=== PATIENT | male | born 1940 | race American Indian/Alaskan Native ===

== ENCOUNTER 2017-10-25 13:27 | Inpatient (IN) | payer OTHER ==
[2017-10-25] MEDS ORDERED: PROVENTIL IH ONE ×2 (13:32→13:38)
[2017-10-25] MEDS ORDERED: ATROVENT IH ONE ×2 (13:32→13:38)
[2017-10-25 14:09] LABS: Hematocrit 37.9 % (35.5-45.6); Hemoglobin 12.2 gm/dl (11.8-15.2); Mean Corpuscular HGB Conc 32 % (32-34); Mean Corpuscular Hemoglobin 31 pg (28-32); Mean Corpuscular Volume 96 fl (84-94); Red Blood Count 3.93 M/mm3 (3.65-5.03); Red Cell Distribution Width 13.6 % (13.2-15.2)
[2017-10-25 14:11] LABS: Platelet Count 96 K/mm3 (140-440)
[2017-10-25 14:19] LABS: Calcium 8.5 mg/dL (8.4-10.2)
[2017-10-25 15:02] LABS: Band Neutrophils # (Manual) 0.1 K/mm3; Basophils % (Manual) 0 % (0.0-1.8); Eosinophils % (Manual) 0 % (0.0-4.3); Platelet Clumps Rare; Platelet Estimate Consistent w Auto; RBC Morphology Normal; Total Cells Counted 100
[2017-10-25] MEDS ORDERED: LEVAQUIN 750MG/150ML 750 MG/150 ML BAG IV ONE (16:15)
[2017-10-25] MEDS ORDERED: LASIX IV ONE (16:15)
--- NOTE | 2017-10-25 16:41 | History and Physical Report ---
History of Present Illness Date of examination: 10/25/17 Date of admission: 10/25/17 Chief complaint: Increasing SOB since AM History of present illness: History of Present Illness: 13-[id number]-cud- [place] male comes in for increasing shortness of breath since AM. Cough productive of mucoid sputum.Patient has hx of COPD. No exacerbating or relieving factors.Not intubated in the past.No fever/ chills.No recent travel. Past Medical History COPD Social History Smoking Status: Unknown if ever smoked Surgical Hx None Family Hx Htn Medications Home Medications: Home Medications Medication Instructions Recorded Confirmed Last Taken Type ALBUTEROL NEB's [Proventil] 2.5 mg IH TID PRN 10/25/17 10/25/17 Unknown History Levofloxacin [Levaquin] 250 mg PO QDAY 10/25/17 10/25/17 Unknown History Medications and Allergies Allergies Allergy/AdvReac Type Severity Reaction Status Date / Time No Known Allergies Allergy Unverified 10/25/17 16:34 Home Medications Medication Instructions Recorded Confirmed Last Taken Type ALBUTEROL NEB's [Proventil] 2.5 mg IH TID PRN 10/25/17 10/25/17 Unknown History Levofloxacin [Levaquin] 250 mg PO QDAY 10/25/17 10/25/17 Unknown History Active Meds: Active Medications Levofloxacin/Dextrose (Levaquin 750mg/150ml) 750 mg in 150 mls @ 100 mls/hr IV ONCE ONE Stop: 10/25/17 17:44 Review of Systems All systems: negative Cardiovascular: shortness of breath, dyspnea on exertion, no chest pain, no orthopnea, no palpitations, no rapid/irregular heart beat, no edema, no syncope , no lightheadedness Respiratory: cough, cough with sputum, dyspnea on exertion, congestion, wheezing Gastrointestinal: no abdominal pain, no nausea, no vomiting, no diarrhea Genitourinary Male: no dysuria, no hematuria, no flank pain, no discharge, no urinary frequency, no urinary hesitancy Musculoskeletal: no neck stiffness, no neck pain, no shooting arm pain, no arm numbness/tingling Integumentary: no rash, no pruritis, no redness, no sores Neurological: no head injury, no transient paralysis, no paralysis, no seizures , no syncope Psychiatric: no anxiety, no memory loss, no change in sleep habits, no sleep disturbances, no insomnia, no change in libido Endocrine: no cold intolerance, no heat intolerance, no polyphagia, no excessive thirst Hematologic/Lymphatic: no easy bruising, no easy bleeding Allergic/Immunologic: no urticaria, no allergic rhinitis, no wheezing Exam - Constitutional Vitals: Temp Pulse Resp BP Pulse Ox 82 16 130/93 97 10/25/17 16:18 10/25/17 16:18 10/25/17 16:18 10/25/17 16:18 General appearance: Present: no acute distress, well-nourished - EENT Eyes: Present: PERRL ENT: hearing intact, clear oral mucosa - Neck Neck: Present: supple, normal ROM - Respiratory Respiratory effort: normal Respiratory: bilateral: CTA, rhonchi, wheezing - Cardiovascular Heart rate: 80 Rhythm: regular Heart Sounds: Present: S1 & S2. Absent: rub, click - Extremities Extremities: no ischemia, pulses intact, pulses symmetrical, No edema Peripheral Pulses: within normal limits - Abdominal General gastrointestinal: Present: soft, non-tender, non-distended, normal bowel sounds Male genitourinary: Present: normal - Rectal Rectal Exam: deferred - Integumentary Integumentary: Present: clear, warm, dry - Musculoskeletal Musculoskeletal: gait normal, strength equal bilaterally - Psychiatric Psychiatric: appropriate mood/affect, intact judgment & insight - Neurologic Neurologic: CNII-XII intact, moves all extremities - Allied Health Allied health notes reviewed: nursing, case management Results - Labs CBC & Chem 7: 10/25/17 13:50 10/25/17 13:50 Labs: Laboratory Last Values WBC 5.7 K/mm3 (4.5-11.0) 10/25/17 13:50 RBC 3.93 M/mm3 (3.65-5.03) 10/25/17 13:50 Hgb 12.2 gm/dl (11.8-15.2) 10/25/17 13:50 Hct 37.9 % (35.5-45.6) 10/25/17 13:50 MCV 96 fl (84-94) H 10/25/17 13:50 MCH 31 pg (28-32) 10/25/17 13:50 MCHC 32 % (32-34) 10/25/17 13:50 RDW 13.6 % (13.2-15.2) 10/25/17 13:50 Plt Count 96 K/mm3 (140-440) L 10/25/17 13:50 Major % (Auto) Painter And Decorator 10/25/17 13:50 Add Manual Diff Complete 10/25/17 13:50 Total Counted 100 10/25/17 13:50 Seg Neuts % (Manual) 75.0 % (40.0-70.0) H 10/25/17 13:50 Band Neutrophils % 1.0 % 10/25/17 13:50 Lymphocytes % (Manual) 10.0 % (13.4-35.0) L 10/25/17 13:50 Reactive Lymphs % (Man) 0 % 10/25/17 13:50 Monocytes % (Manual) 14.0 % (0.0-7.3) H 10/25/17 13:50 Eosinophils % (Manual) 0 % (0.0-4.3) 10/25/17 13:50 Basophils % (Manual) 0 % (0.0-1.8) 10/25/17 13:50 Metamyelocytes % 0 % 10/25/17 13:50 Myelocytes % 0 % 10/25/17 13:50 Promyelocytes % 0 % 10/25/17 13:50 Blast Cells % 0 % 10/25/17 13:50 Nucleated RBC % Not Reportable 10/25/17 13:50 Seg Neutrophils # Man 4.3 K/mm3 (1.8-7.7) 10/25/17 13:50 Band Neutrophils # 0.1 K/mm3 10/25/17 13:50 Lymphocytes # (Manual) 0.6 K/mm3 (1.2-5.4) L 10/25/17 13:50 Abs React Lymphs (Man) 0.0 K/mm3 10/25/17 13:50 Monocytes # (Manual) 0.8 K/mm3 (0.0-0.8) 10/25/17 13:50 Eosinophils # (Manual) 0.0 K/mm3 (0.0-0.4) 10/25/17 13:50 Basophils # (Manual) 0.0 K/mm3 (0.0-0.1) 10/25/17 13:50 Metamyelocytes # 0.0 K/mm3 10/25/17 13:50 Myelocytes # 0.0 K/mm3 10/25/17 13:50 Promyelocytes # 0.0 K/mm3 10/25/17 13:50 Blast Cells # 0.0 K/mm3 10/25/17 13:50 WBC Morphology Not Reportable 10/25/17 13:50 Hypersegmented Neuts Not Reportable 10/25/17 13:50 Hyposegmented Neuts Not Reportable 10/25/17 13:50 Hypogranular Neuts Not Reportable 10/25/17 13:50 Smudge Cells Not Reportable 10/25/17 13:50 Toxic Granulation Not Reportable 10/25/17 13:50 Toxic Vacuolation Not Reportable 10/25/17 13:50 Dohle Bodies Not Reportable 10/25/17 13:50 Pelger-Huet Anomaly Not Reportable 10/25/17 13:50 Santy Rods Not Reportable 10/25/17 13:50 Platelet Estimate Consistent w auto 10/25/17 13:50 Clumped Platelets Rare 10/25/17 13:50 Plt Clumps, EDTA Not Reportable 10/25/17 13:50 Large Platelets Not Reportable 10/25/17 13:50 Giant Platelets Not Reportable 10/25/17 13:50 Platelet Satelliting Not Reportable 10/25/17 13:50 Plt Morphology Comment Not Reportable 10/25/17 13:50 RBC Morphology Normal 10/25/17 13:50 Dimorphic RBCs Not Reportable 10/25/17 13:50 Polychromasia Not Reportable 10/25/17 13:50 Hypochromasia Not Reportable 10/25/17 13:50 Poikilocytosis Not Reportable 10/25/17 13:50 Anisocytosis Not Reportable 10/25/17 13:50 Microcytosis Not Reportable 10/25/17 13:50 Macrocytosis Not Reportable 10/25/17 13:50 Spherocytes Not Reportable 10/25/17 13:50 Pappenheimer Bodies Not Reportable 10/25/17 13:50 Sickle Cells Not Reportable 10/25/17 13:50 Target Cells Not Reportable 10/25/17 13:50 Tear Drop Cells Not Reportable 10/25/17 13:50 Ovalocytes Not Reportable 10/25/17 13:50 Helmet Cells Not Reportable 10/25/17 13:50 Bai-Reeves Bodies Not Reportable 10/25/17 13:50 [place] Rings Not Reportable 10/25/17 13:50 Diana Cells Not Reportable 10/25/17 13:50 Bite Cells Not Reportable 10/25/17 13:50 Crenated Cell Not Reportable 10/25/17 13:50 Elliptocytes Not Reportable 10/25/17 13:50 Acanthocytes (Spur) Not Reportable 10/25/17 13:50 Rouleaux Not Reportable 10/25/17 13:50 Hemoglobin C Crystals Not Reportable 10/25/17 13:50 Schistocytes Not Reportable 10/25/17 13:50 Malaria parasites Not Reportable 10/25/17 13:50 Ángel Bodies Not Reportable 10/25/17 13:50 Hem Pathologist Commnt No 10/25/17 13:50 Sodium 144 mmol/L (137-145) 10/25/17 13:50 Potassium 4.8 mmol/L (3.6-5.0) 10/25/17 13:50 Chloride 102.8 mmol/L (98-107) 10/25/17 13:50 Carbon Dioxide 31 mmol/L (22-30) H 10/25/17 13:50 Anion Gap 15 mmol/L 10/25/17 13:50 BUN 31 mg/dL (9-20) H 10/25/17 13:50 Creatinine 1.7 mg/dL (0.8-1.5) H 10/25/17 13:50 Estimated GFR 39 ml/min 10/25/17 13:50 BUN/Creatinine Ratio 18 % 10/25/17 13:50 Glucose 121 mg/dL (75-100) H 10/25/17 13:50 Calcium 8.5 mg/dL (8.4-10.2) 10/25/17 13:50 Troponin T 0.081 ng/mL (0.00-0.029) H 10/25/17 13:50 NT-Pro-B Natriuret Pep 09223 pg/mL (0-900) H 10/25/17 13:50 - Imaging and Cardiology EKG: report reviewed Chest x-ray: report reviewed (Consolidate rt lung opacity -PNA versus scar etc ) Assessment and Plan Advance Directives: Yes (FC) VTE prophylaxis?: Chemical Plan of care discussed with patient/family: Yes - Patient Problems (1) Acute respiratory failure with hypoxia Current Visit: Yes Status: Acute Plan to address problem: Sec to PNA and COPD Treat Pneumonia and Copd Pt on Bipap If necessary intubation (2) Right lower lobe pneumonia Current Visit: Yes Status: Acute Plan to address problem: IV levaquin for now (3) COPD with acute exacerbation Current Visit: Yes Status: Acute Plan to address problem: Duonebs q6 rtc and q3 prn. (4) NEEL (acute kidney injury) Current Visit: Yes Status: Acute Plan to address problem: IV fluids for now (5) DVT prophylaxis Current Visit: Yes Status: Acute Plan to address problem: On Lovenox
[2017-10-25] MEDS ORDERED: TYLENOL PO PRN (16:44)
[2017-10-25] MEDS ORDERED: MILK OF MAGNESIA PO PRN (16:44)
[2017-10-25] MEDS ORDERED: MORPHINE IV PRN (16:44)
[2017-10-25] MEDS ORDERED: ZOFRAN IV PRN (16:44)
[2017-10-25] MEDS ORDERED: PERCOCET 5/325 PO PRN (16:44)
[2017-10-25] MEDS ORDERED: DULCOLAX PR PRN (16:44)
--- NOTE | 2017-10-25 16:51 | Emergency Department Report ---
ED Shortness of Breath HPI - General Chief Complaint: Dyspnea/Respdistress Stated Complaint: BASIA/AMS Time Seen by Provider: 10/25/17 13:36 Source: EMS Mode of arrival: Stretcher Limitations: Altered Mental Status - History of Present Illness Initial Comments: is a 55-kjhm-ije-[place] male who is presenting with shortness of breath. Family was very unsure of the patient's past medical history but believes he may have COPD. It is unknown whether the patient has CHF as well. Patient was noted to become more short of breath today upon EMS arrival patient had O2 sat in the 80s. Patient has a history of some mild dementia and is unable to give any additional history himself. Patient is alert however he is not speaking to us. MD Complaint: shortness of breath, cough -: This morning Improves With: oxygen Worsens With: nothing Associated Symptoms: cough - Related Data Home Medications Medication Instructions Recorded Confirmed Last Taken ALBUTEROL NEB's [Proventil] 2.5 mg IH TID PRN 10/25/17 10/25/17 Unknown Levofloxacin [Levaquin] 250 mg PO QDAY 10/25/17 10/25/17 Unknown Allergies Allergy/AdvReac Type Severity Reaction Status Date / Time No Known Allergies Allergy Unverified 10/25/17 16:34 ED Review of Systems ROS: Stated complaint: BASIA/AMS Other details as noted in HPI Comment: Unobtainable due to pts medical conditions ED Past Medical Hx - Past Medical History Previous Medical History?: Yes Hx COPD: Yes - Social History Smoking Status: Unknown if ever smoked - Medications Home Medications: Home Medications Medication Instructions Recorded Confirmed Last Taken Type ALBUTEROL NEB's [Proventil] 2.5 mg IH TID PRN 10/25/17 10/25/17 Unknown History Levofloxacin [Levaquin] 250 mg PO QDAY 10/25/17 10/25/17 Unknown History ED Physical Exam - General Limitations: Altered Mental Status General appearance: alert, in distress - Head Head exam: Present: atraumatic, normocephalic - Eye Eye exam: Present: normal appearance - ENT ENT exam: Present: mucous membranes dry - Neck Neck exam: Present: normal inspection - Respiratory Respiratory exam: Present: respiratory distress, wheezes, rhonchi, accessory muscle use. Absent: normal lung sounds bilaterally, rales, stridor - Cardiovascular Cardiovascular Exam: Present: regular rate, normal rhythm. Absent: systolic murmur, diastolic murmur, rubs, gallop - GI/Abdominal GI/Abdominal exam: Present: soft, normal bowel sounds. Absent: distended, tenderness, guarding - Rectal Rectal exam: Present: deferred - Extremities Exam Extremities exam: Present: normal inspection - Back Exam Back exam: Present: normal inspection - Neurological Exam Neurological exam: Present: alert, oriented X3 - Psychiatric Psychiatric exam: Present: normal affect, normal mood - Skin Skin exam: Present: warm, dry, intact, normal color. Absent: rash ED Course Vital Signs 10/25/17 10/25/17 10/25/17 13:27 13:29 13:30 Pulse Rate 96 H 106 H 109 H Pulse Rate [ Anterior] Respiratory 18 16 16 Rate Respiratory Rate [Anterior] Blood Pressure 120/65 114/62 O2 Sat by Pulse 100 100 100 Oximetry 10/25/17 10/25/17 10/25/17 13:45 14:00 14:10 Pulse Rate 103 H 105 H 99 H Pulse Rate [ 92 H Anterior] Respiratory 14 16 18 Rate Respiratory 20 Rate [Anterior] Blood Pressure 114/62 113/72 114/62 O2 Sat by Pulse 97 99 Oximetry 10/25/17 10/25/17 10/25/17 15:04 15:10 16:18 Pulse Rate 82 Pulse Rate [ 98 H Anterior] Respiratory 16 16 Rate Respiratory 18 Rate [Anterior] Blood Pressure 130/93 O2 Sat by Pulse 100 97 Oximetry ED Medical Decision Making - Lab Data Result diagrams: 10/25/17 13:50 10/25/17 13:50 - EKG Data -: EKG Interpreted by Me - EKG Data Interpretation: other (patient's EKG shows atrial fibrillation at a rate of [address] segment elevations or depressions axis is normal intervals and normal interpretation is 1345) - Radiology Data Radiology results: image reviewed Chest x-ray interpreted by me as a right middle lobe infiltrate. Patient also has borderline cardiomegaly. - Medical Decision Making Patient is a 77-year-old [place] male who is presenting with respiratory distress. Patient was immediately placed on BiPAP and given a neb treatment over an hour. This did help the patient's symptoms dramatically. X-ray showed a right middle lobe infiltrate. Patient will be admitted to Dr. Monica\ at this time for further care. Critical Care Time: Yes Critical care time in (mins) excluding proc time.: 30 Critical care attestation.: If time is entered above; I have spent that time in minutes in the direct care of this critically ill patient, excluding procedure time. ED Disposition Clinical Impression: Acute respiratory distress Pneumonia Qualifiers: Pneumonia type: due to unspecified organism Laterality: right Lung location: middle lobe of lung Qualified Code(s): J18.1 - Lobar pneumonia, unspecified organism Disposition: OP ADMIT IP TO THIS HOSP Is pt being admited?: Yes Does the pt Need Aspirin: No Condition: Serious Instructions: Bacterial Pneumonia (ED) Referrals: PRIMARY CARE, [Primary Care Provider] - 3-5 Days
[2017-10-25] MEDS ORDERED: DUONEB *Not for PRN Use IH (16:58)
[2017-10-25] MEDS ORDERED: PROVENTIL IH PRN (17:25)
[2017-10-25] MEDS: DUONEB *Not for PRN Use IH SCH ×2 (17:30→21:52)
[2017-10-25] MEDS: LEVAQUIN 750MG/150ML 750 MG/150 ML BAG IV SCH (17:40)
--- NOTE | 2017-10-25 17:59 | XRay Report ---
FINAL REPORT EXAM: XR CHEST 1V AP HISTORY: copd TECHNIQUE: Frontal portable examination of the chest PRIORS: None FINDINGS: Nonspecific patchy opacity is noted in the right mid and lower lung partly obscuring the cardiac margin. This is suggestive of density within the right middle lobe. Considerations include atelectasis, scar, mass, or pneumonia. Atypical configuration of left cardiac margin. This may be superimposition artifact or reflect a component of congenital heart disease. There may be descending thoracic aortic stenosis.. No definite cardiac silhouette size enlarged. No pneumothorax or pleural effusion. No acute displaced fracture. No vascular congestion. IMPRESSION: Consolidated right lung opacity may be scar, atelectasis, mass, or pneumonia. Atypical left cardiac margin configuration may be from superimposition artifact. Consider also congenital heart disease and descending thoracic aortic stenosis. Consider also prior surgery or thoracic aortic aneurysm. Chest CT may help further characterize, with IV contrast if possible
[2017-10-25 21:04] LABS: Chol/HDL Ratio 2.33 %
[2017-10-25 21:05] LABS: Albumin 3.4 g/dL (3.9-5); Calcium 8.6 mg/dL (8.4-10.2)
[2017-10-25] MEDS: PEPCID IV SCH (23:58)
[2017-10-25] MEDS: HEPARIN SUB-Q SCH (23:59)
[2017-10-26] MEDS: DUONEB *Not for PRN Use IH SCH ×4 (03:07→20:49)
[2017-10-26] MEDS: HEPARIN SUB-Q SCH ×3 (06:38→23:21)
[2017-10-26 06:48] LABS: Basophils % (Auto) 0.1 % (0.0-1.8); Hematocrit 39.4 % (35.5-45.6); Hemoglobin 12.8 gm/dl (11.8-15.2); Lymphocytes # (Auto) 0.7 K/mm3 (1.2-5.4); Lymphocytes % (Auto) 15.3 % (13.4-35.0); Mean Corpuscular HGB Conc 33 % (32-34); Mean Corpuscular Hemoglobin 31 pg (28-32); Mean Corpuscular Volume 96 fl (84-94); Monocytes # (Auto) 0.2 K/mm3 (0.0-0.8); Red Blood Count 4.12 M/mm3 (3.65-5.03); Red Cell Distribution Width 13.4 % (13.2-15.2)
[2017-10-26 06:58] LABS: Albumin 3.3 g/dL (3.9-5); Calcium 9.2 mg/dL (8.4-10.2)
[2017-10-26 07:10] LABS: Platelet Count 91 K/mm3 (140-440)
[2017-10-26] MEDS: LEVAQUIN 750MG/150ML 750 MG/150 ML BAG IV SCH (10:00)
[2017-10-26] MEDS: PEPCID IV SCH ×2 (10:03→23:23)
--- NOTE | 2017-10-26 12:16 | Progress Note ---
Assessment and Plan Assessment and plan: Acute hypoxic hypercapnic respiratory failure. Etiology secondary to pneumonia , COPD. Continue BiPAP as clinically indicated. Pulmonary consultation. Right lower lobe pneumonia. Continue IV antibiotics with Levaquin. Follow-up chest x-ray. COPD exacerbation. Continue bronchodilators and O2/BiPAP for supportive care. Acute renal failure. Etiology likely secondary to acute kidney injury versus vasomotor nephropathy. Follow BMP. Elevated BNP. Check echocardiogram. DVT prophylaxis. Continue Lovenox. History Interval history: Patient still with significant dyspnea. Currently on BiPAP. Hospitalist Physical - Constitutional Vitals: Temp Pulse Resp BP Pulse Ox 98.5 F 87 20 131/66 90 10/26/17 08:52 10/26/17 09:01 10/26/17 08:52 10/26/17 08:52 10/26/17 08:52 General appearance: Present: no acute distress, well-nourished - EENT Eyes: Present: PERRL, EOM intact ENT: hearing intact, clear oral mucosa, dentition normal - Neck Neck: Present: supple, normal ROM - Respiratory Respiratory effort: normal Respiratory: bilateral: diminished, rhonchi - Cardiovascular Rhythm: regular Heart Sounds: Present: S1 & S2. Absent: gallop, rub - Extremities Extremities: no ischemia, No edema, Full ROM - Abdominal General gastrointestinal: soft, non-tender, non-distended, normal bowel sounds - Integumentary Integumentary: Present: clear, warm, dry - Neurologic Neurologic: CNII-XII intact, moves all extremities Results - Labs CBC & Chem 7: 10/26/17 06:27 10/26/17 06:27 Labs: Laboratory Last Values WBC 4.7 K/mm3 (4.5-11.0) 10/26/17 06:27 RBC 4.12 M/mm3 (3.65-5.03) 10/26/17 06:27 Hgb 12.8 gm/dl (11.8-15.2) 10/26/17 06:27 Hct 39.4 % (35.5-45.6) 10/26/17 06:27 MCV 96 fl (84-94) H 10/26/17 06:27 MCH 31 pg (28-32) 10/26/17 06:27 MCHC 33 % (32-34) 10/26/17 06:27 RDW 13.4 % (13.2-15.2) 10/26/17 06:27 Plt Count 91 K/mm3 (140-440) L 10/26/17 06:27 Lymph % (Auto) 15.3 % (13.4-35.0) 10/26/17 06:27 [place] % (Auto) 4.0 % (0.0-7.3) 10/26/17 06:27 Eos % (Auto) 0.0 % (0.0-4.3) 10/26/17 06:27 Baso % (Auto) 0.1 % (0.0-1.8) 10/26/17 06:27 Lymph # 0.7 K/mm3 (1.2-5.4) L 10/26/17 06:27 [place] # 0.2 K/mm3 (0.0-0.8) 10/26/17 06:27 Eos # 0.0 K/mm3 (0.0-0.4) 10/26/17 06:27 Baso # 0.0 K/mm3 (0.0-0.1) 10/26/17 06:27 Add Manual Diff Complete 10/25/17 13:50 Total Counted 100 10/25/17 13:50 Seg Neutrophils % 80.6 % (40.0-70.0) H 10/26/17 06:27 Seg Neuts % (Manual) 75.0 % (40.0-70.0) H 10/25/17 13:50 Band Neutrophils % 1.0 % 10/25/17 13:50 Lymphocytes % (Manual) 10.0 % (13.4-35.0) L 10/25/17 13:50 Reactive Lymphs % (Man) 0 % 10/25/17 13:50 Monocytes % (Manual) 14.0 % (0.0-7.3) H 10/25/17 13:50 Eosinophils % (Manual) 0 % (0.0-4.3) 10/25/17 13:50 Basophils % (Manual) 0 % (0.0-1.8) 10/25/17 13:50 Metamyelocytes % 0 % 10/25/17 13:50 Myelocytes % 0 % 10/25/17 13:50 Promyelocytes % 0 % 10/25/17 13:50 Blast Cells % 0 % 10/25/17 13:50 Nucleated RBC % Not Reportable 10/25/17 13:50 Seg Neutrophils # 3.8 K/mm3 (1.8-7.7) 10/26/17 06:27 Seg Neutrophils # Man 4.3 K/mm3 (1.8-7.7) 10/25/17 13:50 Band Neutrophils # 0.1 K/mm3 10/25/17 13:50 Lymphocytes # (Manual) 0.6 K/mm3 (1.2-5.4) L 10/25/17 13:50 Abs React Lymphs (Man) 0.0 K/mm3 10/25/17 13:50 Monocytes # (Manual) 0.8 K/mm3 (0.0-0.8) 10/25/17 13:50 Eosinophils # (Manual) 0.0 K/mm3 (0.0-0.4) 10/25/17 13:50 Basophils # (Manual) 0.0 K/mm3 (0.0-0.1) 10/25/17 13:50 Metamyelocytes # 0.0 K/mm3 10/25/17 13:50 Myelocytes # 0.0 K/mm3 10/25/17 13:50 Promyelocytes # 0.0 K/mm3 10/25/17 13:50 Blast Cells # 0.0 K/mm3 10/25/17 13:50 WBC Morphology Not Reportable 10/25/17 13:50 Hypersegmented Neuts Not Reportable 10/25/17 13:50 Hyposegmented Neuts Not Reportable 10/25/17 13:50 Hypogranular Neuts Not Reportable 10/25/17 13:50 Smudge Cells Not Reportable 10/25/17 13:50 Toxic Granulation Not Reportable 10/25/17 13:50 Toxic Vacuolation Not Reportable 10/25/17 13:50 Dohle Bodies Not Reportable 10/25/17 13:50 Pelger-Huet Anomaly Not Reportable 10/25/17 13:50 Santy Rods Not Reportable 10/25/17 13:50 Platelet Estimate Consistent w auto 10/25/17 13:50 Clumped Platelets Rare 10/25/17 13:50 Plt Clumps, EDTA Not Reportable 10/25/17 13:50 Large Platelets Not Reportable 10/25/17 13:50 Giant Platelets Not Reportable 10/25/17 13:50 Platelet Satelliting Not Reportable 10/25/17 13:50 Plt Morphology Comment Not Reportable 10/25/17 13:50 RBC Morphology Normal 10/25/17 13:50 Dimorphic RBCs Not Reportable 10/25/17 13:50 Polychromasia Not Reportable 10/25/17 13:50 Hypochromasia Not Reportable 10/25/17 13:50 Poikilocytosis Not Reportable 10/25/17 13:50 Anisocytosis Not Reportable 10/25/17 13:50 Microcytosis Not Reportable 10/25/17 13:50 Macrocytosis Not Reportable 10/25/17 13:50 Spherocytes Not Reportable 10/25/17 13:50 Pappenheimer Bodies Not Reportable 10/25/17 13:50 Sickle Cells Not Reportable 10/25/17 13:50 Target Cells Not Reportable 10/25/17 13:50 Tear Drop Cells Not Reportable 10/25/17 13:50 Ovalocytes Not Reportable 10/25/17 13:50 Helmet Cells Not Reportable 10/25/17 13:50 Bai-Pitts Bodies Not Reportable 10/25/17 13:50 [place] Rings Not Reportable 10/25/17 13:[address] Cells Not Reportable 10/25/17 13:50 Bite Cells Not Reportable 10/25/17 13:50 Crenated Cell Not Reportable 10/25/17 13:50 Elliptocytes Not Reportable 10/25/17 13:50 Acanthocytes (Spur) Not Reportable 10/25/17 13:50 Rouleaux Not Reportable 10/25/17 13:50 Hemoglobin C Crystals Not Reportable 10/25/17 13:50 Schistocytes Not Reportable 10/25/17 13:50 Malaria parasites Not Reportable 10/25/17 13:50 Ángel Bodies Not Reportable 10/25/17 13:50 Hem Pathologist Commnt No 10/25/17 13:50 POC ABG pH 7.355 (7.35-7.45) 10/25/17 16:38 POC ABG pCO2 54.6 (35-45) H 10/25/17 16:38 POC ABG pO2 77 (80-105) L 10/25/17 16:38 POC ABG HCO3 30.5 10/25/17 16:38 POC ABG Total CO2 32 10/25/17 16:38 POC ABG O2 Sat 94 10/25/17 16:38 POC ABG Base Excess 5 10/25/17 16:38 FiO2 30 % 10/25/17 16:38 Sodium 143 mmol/L (137-145) 10/26/17 06:27 Potassium 4.9 mmol/L (3.6-5.0) 10/26/17 06:27 Chloride 99.8 mmol/L (98-107) 10/26/17 06:27 Carbon Dioxide 29 mmol/L (22-30) 10/26/17 06:27 Anion Gap 19 mmol/L 10/26/17 06:27 BUN 30 mg/dL (9-20) H 10/26/17 06:27 Creatinine 1.4 mg/dL (0.8-1.5) 10/26/17 06:27 Estimated GFR 59 ml/min 10/26/17 06:27 BUN/Creatinine Ratio 21 % 10/26/17 06:27 Glucose 129 mg/dL (75-100) H 10/26/17 06:27 Hemoglobin A1c 5.2 % (4-6) 10/25/17 13:50 Calcium 9.2 mg/dL (8.4-10.2) 10/26/17 06:27 Total Bilirubin 0.50 mg/dL (0.1-1.2) 10/26/17 06:27 AST 191 units/L (5-40) H 10/26/17 06:27 ALT 255 units/L (7-56) H 10/26/17 06:27 Alkaline Phosphatase 105 units/L (35-129) 10/26/17 06:27 Troponin T 0.081 ng/mL (0.00-0.029) H 10/25/17 13:50 NT-Pro-B Natriuret Pep 66542 pg/mL (0-900) H 10/25/17 13:50 Total Protein 6.9 g/dL (6.3-8.2) 10/26/17 06:27 Albumin 3.3 g/dL (3.9-5) L 10/26/17 06:27 Albumin/Globulin Ratio 0.9 % 10/26/17 06:27 Triglycerides 70 mg/dL (2-149) 10/25/17 13:50 Cholesterol 119 mg/dL (50-199) 10/25/17 13:50 LDL Cholesterol Direct 54 mg/dL (50-130) 10/25/17 13:50 HDL Cholesterol 51 mg/dL (40-59) 10/25/17 13:50 Cholesterol/HDL Ratio 2.33 % 10/25/17 13:50
--- NOTE | 2017-10-26 12:17 | Consultation ---
History of Present Illness Consult date: 10/26/17 Requesting physician: CB BOATENG Reason for consult: other (Acute Hypoxemic Resp Failure) History of present illness: PULMONARY/CCM CONSULT NOTE (Full dictation # [id number]) Please see dictated notes for full details Medications and Allergies Allergies Allergy/AdvReac Type Severity Reaction Status Date / Time No Known Allergies Allergy Unverified 10/25/17 16:34 Home Medications Medication Instructions Recorded Confirmed Last Taken Type ALBUTEROL NEB's [Proventil] 2.5 mg IH TID PRN 10/25/17 10/25/17 Unknown History Levofloxacin [Levaquin] 250 mg PO QDAY 10/25/17 10/25/17 Unknown History Active Meds: Active Medications Acetaminophen (Tylenol) 650 mg PO Q4H PRN PRN Reason: Pain MILD(1-3)/Fever >100.5/TAPIA Albuterol (Proventil) 2.5 mg IH Q4HRT PRN PRN Reason: Shortness Of Breath Albuterol/Ipratropium (Duoneb *Not For Prn Use*) 1 ampul IH Q6HRT [facility] Last Admin: 10/26/17 07:42 Dose: 1 ampul Bisacodyl (Dulcolax) 10 mg [place] QDAY PRN PRN Reason: Constipation unrelieved by MOM Famotidine (Pepcid) 20 mg IV BID [facility] Last Admin: 10/26/17 10:03 Dose: 20 mg Heparin Sodium (Porcine) (Heparin) 5,000 unit SUB-Q Q8HR [facility] Last Admin: 10/26/17 06:38 Dose: 5,000 unit Levofloxacin/Dextrose (Levaquin 750mg/150ml) 750 mg in 150 mls @ 100 mls/hr IV Q24HR [facility] PRN Reason: Protocol Last Admin: 10/26/17 10:00 Dose: 100 mls/hr Magnesium Hydroxide (Milk Of Magnesia) 30 ml PO Q4H PRN PRN Reason: Constipation Methylprednisolone Sodium Succinate (Solu-Medrol) 125 mg IV Q8HR [facility] Last Admin: 10/26/17 06:38 Dose: 125 mg Morphine Sulfate (Morphine) 2 mg IV Q4H PRN PRN Reason: Pain, Moderate (4-6) Ondansetron HCl (Zofran) 4 mg IV Q8H PRN PRN Reason: N/V unrelieved by Reglan Oxycodone/Acetaminophen (Percocet 5/325) 1 tab PO Q6H PRN PRN Reason: Pain, Moderate (4-6) Physical Examination Vital signs: Vital Signs Pulse Resp Pulse Ox 96 H 18 100 10/25/17 13:27 10/25/17 13:27 10/25/17 13:27 Results - Laboratory Findings CBC and BMP: 10/27/17 06:00 10/27/17 06:00 ABG POC ABG pH 7.355 (7.35-7.45) 10/25/17 16:38 POC ABG pCO2 54.6 (35-45) H 10/25/17 16:38 POC ABG pO2 77 (80-105) L 10/25/17 16:38 POC ABG HCO3 30.5 10/25/17 16:38 POC ABG Total CO2 32 10/25/17 16:38 POC ABG O2 Sat 94 10/25/17 16:38 Abnormal lab findings: Abnormal Labs 10/25/17 10/25/17 10/25/17 13:50 13:50 13:50 MCV 96 H Plt Count 96 L Lymph # Seg Neutrophils % Seg Neuts % (Manual) 75.0 H Lymphocytes % (Manual) 10.0 L Monocytes % (Manual) 14.0 H Lymphocytes # (Manual) 0.6 L POC ABG pCO2 POC ABG pO2 Carbon Dioxide 31 H BUN 31 H Creatinine 1.7 H Glucose 121 H AST ALT Troponin T 0.081 H NT-Pro-B Natriuret Pep 25145 H Albumin 10/25/17 10/25/17 10/26/17 13:50 16:38 06:27 MCV 96 H Plt Count 91 L Lymph # 0.7 L Seg Neutrophils % 80.6 H Seg Neuts % (Manual) Lymphocytes % (Manual) Monocytes % (Manual) Lymphocytes # (Manual) POC ABG pCO2 54.6 H POC ABG pO2 77 L Carbon Dioxide BUN 32 H Creatinine 1.6 H Glucose 117 H AST 265 H ALT 272 H Troponin T NT-Pro-B Natriuret Pep Albumin 3.4 L 10/26/17 06:27 MCV Plt Count Lymph # Seg Neutrophils % Seg Neuts % (Manual) Lymphocytes % (Manual) Monocytes % (Manual) Lymphocytes # (Manual) POC ABG pCO2 POC ABG pO2 Carbon Dioxide BUN 30 H Creatinine Glucose 129 H AST 191 H ALT 255 H Troponin T NT-Pro-B Natriuret Pep Albumin 3.3 L
[2017-10-26] MEDS ORDERED: CARDIZEM/D5W 100MG/100ML 100 MG/100 ML BAG IV SCH (19:00)
[2017-10-26] MEDS ORDERED: CARDIZEM 100 MG in D5W 80 ML IV SCH (21:00)
[2017-10-27] MEDS: DUONEB *Not for PRN Use IH SCH ×4 (03:10→20:43)
[2017-10-27 06:52] LABS: Hematocrit 35.7 % (35.5-45.6); Hemoglobin 11.6 gm/dl (11.8-15.2); Lymphocytes # (Auto) 0.4 K/mm3 (1.2-5.4); Lymphocytes % (Auto) 8.6 % (13.4-35.0); Mean Corpuscular HGB Conc 33 % (32-34); Mean Corpuscular Hemoglobin 31 pg (28-32); Mean Corpuscular Volume 95 fl (84-94); Monocytes # (Auto) 0.2 K/mm3 (0.0-0.8); Monocytes % (Auto) 5.5 % (0.0-7.3); Platelet Count 100 K/mm3 (140-440); Red Blood Count 3.78 M/mm3 (3.65-5.03); Red Cell Distribution Width 13.1 % (13.2-15.2)
[2017-10-27 07:14] LABS: Calcium 8.7 mg/dL (8.4-10.2)
--- NOTE | 2017-10-27 10:30 | Consultation ---
History of Present Illness Consult date: 10/27/17 Consult reason: shortness of breath History of present illness: 77 YO man with presented to hospital with worsening dyspnea. He was found to have right lung consolidation on chest Xray and has been diagnosed with pneumonia. Additionally his entire cardiac silhoutte appears to be shifted to the right. His BNP level was also noted to be elevated. He has not had any significant palpitations or chest pain. He denies any previous medical or cardiac problems but was not regularly seeing a physician. ECG upon presentation was consistent with likely ectopic atrial rhythm with runs of MAT. He went into atrial fibrillation with RVR after admission and was started on IV cardizem. Medications and Allergies Allergies Allergy/AdvReac Type Severity Reaction Status Date / Time No Known Allergies Allergy Unverified 10/25/17 16:34 Home Medications Medication Instructions Recorded Confirmed Last Taken Type ALBUTEROL NEB's [Proventil] 2.5 mg IH TID PRN 10/25/17 10/25/17 Unknown History Levofloxacin [Levaquin] 250 mg PO QDAY 10/25/17 10/25/17 Unknown History Active Meds: Active Medications Acetaminophen (Tylenol) 650 mg PO Q4H PRN PRN Reason: Pain MILD(1-3)/Fever >100.5/TAPIA Albuterol (Proventil) 2.5 mg IH Q4HRT PRN PRN Reason: Shortness Of Breath Albuterol/Ipratropium (Duoneb *Not For Prn Use*) 1 ampul IH Q6HRT [facility] Last Admin: 10/27/17 08:09 Dose: 1 ampul Bisacodyl (Dulcolax) 10 mg [place] QDAY PRN PRN Reason: Constipation unrelieved by MOM Famotidine (Pepcid) 10 mg PO BID [facility] Heparin Sodium (Porcine) (Heparin) 5,000 unit SUB-Q Q8HR [facility] Last Admin: 10/26/17 23:21 Dose: 5,000 unit Diltiazem HCl 100 mg/ Dextrose 100 mls @ 10 mls/hr IV DIRECT [facility] PRN Reason: 10 MG/HR Levofloxacin/Dextrose (Levaquin 750mg/150ml) 750 mg in 150 mls @ 100 mls/hr IV Q48HR [facility] PRN Reason: Protocol Magnesium Hydroxide (Milk Of Magnesia) 30 ml PO Q4H PRN PRN Reason: Constipation Methylprednisolone Sodium Succinate (Solu-Medrol) 125 mg IV Q8HR [facility] Last Admin: 10/26/17 23:22 Dose: 125 mg Morphine Sulfate (Morphine) 2 mg IV Q4H PRN PRN Reason: Pain, Moderate (4-6) Ondansetron HCl (Zofran) 4 mg IV Q8H PRN PRN Reason: N/V unrelieved by Reglan Oxycodone/Acetaminophen (Percocet 5/325) 1 tab PO Q6H PRN PRN Reason: Pain, Moderate (4-6) Review of Systems All systems: negative (otherwise unable to obtain) Physical Examination Vital Signs Pulse Resp Pulse Ox 96 H 18 100 10/25/17 13:27 10/25/17 13:27 10/25/17 13:27 General appearance: no acute distress HEENT: Positive: PERRL Cardiac: Positive: irregularly irregular, Systolic Murmur (II/ HSM at L sternal border. Loud P2.) Lungs: Positive: Rhonchi Abdomen: Positive: Soft, Active Bowel Sounds Extremities: Absent: edema Results 10/27/17 06:00 10/27/17 06:00 CBC 10/27/17 Range/Units 06:00 WBC 4.1 L (4.5-11.0) K/mm3 RBC 3.78 (3.65-5.03) M/mm3 Hgb 11.6 L (11.8-15.2) gm/dl Hct 35.7 (35.5-45.6) % Plt Count 100 L (140-440) K/mm3 Lymph # 0.4 L (1.2-5.4) K/mm3 [place]ke # 0.2 (0.0-0.8) K/mm3 Eos # 0.0 (0.0-0.4) K/mm3 Baso # 0.0 (0.0-0.1) K/mm3 Comprehensive Metabolic Panel 10/27/17 Range/Units 06:00 Sodium 149 H (137-145) mmol/L Potassium 4.5 (3.6-5.0) mmol/L Chloride 105.4 (98-107) mmol/L Carbon Dioxide 31 H (22-30) mmol/L BUN 42 H (9-20) mg/dL Creatinine 1.5 (0.8-1.5) mg/dL Glucose 149 H (75-100) mg/dL Calcium 8.7 (8.4-10.2) mg/dL Assessment and Plan Atrial fibrillation Newly diagnosed Pneumonia Physical exam suggestive of pulmonary hypertension Abnormal Cardiac location on chest Xray Recommend: Transition to oral cardizem Start systemic anticoagulation - change to full dose lovenox Check Echocardiogram Consider CT Chest.
--- NOTE | 2017-10-27 10:36 | Progress Note ---
Assessment and Plan Assessment and plan: Acute hypoxic hypercapnic respiratory failure. Etiology secondary to pneumonia , COPD. Continue BiPAP as clinically indicated. Pulmonary consultation. Right lower lobe pneumonia. Continue IV antibiotics with Levaquin. Follow-up chest x-ray. COPD exacerbation. Continue bronchodilators and O2/BiPAP for supportive care. Acute renal failure. Etiology likely secondary to acute kidney injury versus vasomotor nephropathy. Follow BMP. Elevated BNP. Check echocardiogram. ? Thoracic aortic aneurysm. Radiology recommends CT with IV contrast for further evaluation. Consider CT scan when creatinine improves. DVT prophylaxis. Continue Lovenox. History Interval history: Patient still with significant dyspnea. Currently on BiPAP. Hospitalist Physical - Constitutional Vitals: Temp Pulse Resp BP Pulse Ox 98.1 F 106 H 18 110/66 98 10/27/17 04:23 10/27/17 08:05 10/27/17 08:05 10/27/17 04:23 10/27/17 09:04 General appearance: Present: no acute distress, well-nourished - EENT Eyes: Present: PERRL, EOM intact ENT: hearing intact, clear oral mucosa, dentition normal - Neck Neck: Present: supple, normal ROM - Respiratory Respiratory effort: normal Respiratory: bilateral: CTA - Cardiovascular Rhythm: regular Heart Sounds: Present: S1 & S2. Absent: gallop, rub - Extremities Extremities: no ischemia, No edema, Full ROM - Abdominal General gastrointestinal: soft, non-tender, non-distended, normal bowel sounds - Integumentary Integumentary: Present: clear, warm, dry - Neurologic Neurologic: CNII-XII intact, moves all extremities Results - Labs CBC & Chem 7: 10/27/17 06:00 10/27/17 06:00 Labs: Laboratory Last Values WBC 4.1 K/mm3 (4.5-11.0) L 10/27/17 06:00 RBC 3.78 M/mm3 (3.65-5.03) 10/27/17 06:00 Hgb 11.6 gm/dl (11.8-15.2) L 10/27/17 06:00 Hct 35.7 % (35.5-45.6) 10/27/17 06:00 MCV 95 fl (84-94) H 10/27/17 06:00 MCH 31 pg (28-32) 10/27/17 06:00 MCHC 33 % (32-34) 10/27/17 06:00 RDW 13.1 % (13.2-15.2) L 10/27/17 06:00 Plt Count 100 K/mm3 (140-440) L 10/27/17 06:00 Lymph % (Auto) 8.6 % (13.4-35.0) L 10/27/17 06:00 [place] % (Auto) 5.5 % (0.0-7.3) 10/27/17 06:00 Eos % (Auto) 0.0 % (0.0-4.3) 10/27/17 06:00 Baso % (Auto) 0.0 % (0.0-1.8) 10/27/17 06:00 Lymph # 0.4 K/mm3 (1.2-5.4) L 10/27/17 06:00 [place] # 0.2 K/mm3 (0.0-0.8) 10/27/17 06:00 Eos # 0.0 K/mm3 (0.0-0.4) 10/27/17 06:00 Baso # 0.0 K/mm3 (0.0-0.1) 10/27/17 06:00 Add Manual Diff Complete 10/25/17 13:50 Total Counted 100 10/25/17 13:50 Seg Neutrophils % 85.9 % (40.0-70.0) H 10/27/17 06:00 Seg Neuts % (Manual) 75.0 % (40.0-70.0) H 10/25/17 13:50 Band Neutrophils % 1.0 % 10/25/17 13:50 Lymphocytes % (Manual) 10.0 % (13.4-35.0) L 10/25/17 13:50 Reactive Lymphs % (Man) 0 % 10/25/17 13:50 Monocytes % (Manual) 14.0 % (0.0-7.3) H 10/25/17 13:50 Eosinophils % (Manual) 0 % (0.0-4.3) 10/25/17 13:50 Basophils % (Manual) 0 % (0.0-1.8) 10/25/17 13:50 Metamyelocytes % 0 % 10/25/17 13:50 Myelocytes % 0 % 10/25/17 13:50 Promyelocytes % 0 % 10/25/17 13:50 Blast Cells % 0 % 10/25/17 13:50 Nucleated RBC % Not Reportable 10/25/17 13:50 Seg Neutrophils # 3.6 K/mm3 (1.8-7.7) 10/27/17 06:00 Seg Neutrophils # Man 4.3 K/mm3 (1.8-7.7) 10/25/17 13:50 Band Neutrophils # 0.1 K/mm3 10/25/17 13:50 Lymphocytes # (Manual) 0.6 K/mm3 (1.2-5.4) L 10/25/17 13:50 Abs React Lymphs (Man) 0.0 K/mm3 10/25/17 13:50 Monocytes # (Manual) 0.8 K/mm3 (0.0-0.8) 10/25/17 13:50 Eosinophils # (Manual) 0.0 K/mm3 (0.0-0.4) 10/25/17 13:50 Basophils # (Manual) 0.0 K/mm3 (0.0-0.1) 10/25/17 13:50 Metamyelocytes # 0.0 K/mm3 10/25/17 13:50 Myelocytes # 0.0 K/mm3 10/25/17 13:50 Promyelocytes # 0.0 K/mm3 10/25/17 13:50 Blast Cells # 0.0 K/mm3 10/25/17 13:50 WBC Morphology Not Reportable 10/25/17 13:50 Hypersegmented Neuts Not Reportable 10/25/17 13:50 Hyposegmented Neuts Not Reportable 10/25/17 13:50 Hypogranular Neuts Not Reportable 10/25/17 13:50 Smudge Cells Not Reportable 10/25/17 13:50 Toxic Granulation Not Reportable 10/25/17 13:50 Toxic Vacuolation Not Reportable 10/25/17 13:50 Dohle Bodies Not Reportable 10/25/17 13:50 Pelger-Huet Anomaly Not Reportable 10/25/17 13:50 Santy Rods Not Reportable 10/25/17 13:50 Platelet Estimate Consistent w auto 10/25/17 13:50 Clumped Platelets Rare 10/25/17 13:50 Plt Clumps, EDTA Not Reportable 10/25/17 13:50 Large Platelets Not Reportable 10/25/17 13:50 Giant Platelets Not Reportable 10/25/17 13:50 Platelet Satelliting Not Reportable 10/25/17 13:50 Plt Morphology Comment Not Reportable 10/25/17 13:50 RBC Morphology Normal 10/25/17 13:50 Dimorphic RBCs Not Reportable 10/25/17 13:50 Polychromasia Not Reportable 10/25/17 13:50 Hypochromasia Not Reportable 10/25/17 13:50 Poikilocytosis Not Reportable 10/25/17 13:50 Anisocytosis Not Reportable 10/25/17 13:50 Microcytosis Not Reportable 10/25/17 13:50 Macrocytosis Not Reportable 10/25/17 13:50 Spherocytes Not Reportable 10/25/17 13:50 Pappenheimer Bodies Not Reportable 10/25/17 13:50 Sickle Cells Not Reportable 10/25/17 13:50 Target Cells Not Reportable 10/25/17 13:50 Tear Drop Cells Not Reportable 10/25/17 13:50 Ovalocytes Not Reportable 10/25/17 13:50 Helmet Cells Not Reportable 10/25/17 13:50 Bai-Ridgeley Bodies Not Reportable 10/25/17 13:50 Como Rings Not Reportable 10/25/17 13:50 Diana Cells Not Reportable 10/25/17 13:50 Bite Cells Not Reportable 10/25/17 13:50 Crenated Cell Not Reportable 10/25/17 13:50 Elliptocytes Not Reportable 10/25/17 13:50 Acanthocytes (Spur) Not Reportable 10/25/17 13:50 Rouleaux Not Reportable 10/25/17 13:50 Hemoglobin C Crystals Not Reportable 10/25/17 13:50 Schistocytes Not Reportable 10/25/17 13:50 Malaria parasites Not Reportable 10/25/17 13:50 Ángel Bodies Not Reportable 10/25/17 13:50 Hem Pathologist Commnt No 10/25/17 13:50 POC ABG pH 7.355 (7.35-7.45) 10/25/17 16:38 POC ABG pCO2 54.6 (35-45) H 10/25/17 16:38 POC ABG pO2 77 (80-105) L 10/25/17 16:38 POC ABG HCO3 30.5 10/25/17 16:38 POC ABG Total CO2 32 10/25/17 16:38 POC ABG O2 Sat 94 10/25/17 16:38 POC ABG Base Excess 5 10/25/17 16:38 FiO2 30 % 10/25/17 16:38 Sodium 149 mmol/L (137-145) H 10/27/17 06:00 Potassium 4.5 mmol/L (3.6-5.0) 10/27/17 06:00 Chloride 105.4 mmol/L (98-107) 10/27/17 06:00 Carbon Dioxide 31 mmol/L (22-30) H 10/27/17 06:00 Anion Gap 17 mmol/L 10/27/17 06:00 BUN 42 mg/dL (9-20) H 10/27/17 06:00 Creatinine 1.5 mg/dL (0.8-1.5) 10/27/17 06:00 Estimated GFR 55 ml/min 10/27/17 06:00 BUN/Creatinine Ratio 28 % 10/27/17 06:00 Glucose 149 mg/dL (75-100) H 10/27/17 06:00 Hemoglobin A1c 5.2 % (4-6) 10/25/17 13:50 Calcium 8.7 mg/dL (8.4-10.2) 10/27/17 06:00 Total Bilirubin 0.50 mg/dL (0.1-1.2) 10/26/17 06:27 AST 191 units/L (5-40) H 10/26/17 06:27 ALT 255 units/L (7-56) H 10/26/17 06:27 Alkaline Phosphatase 105 units/L (35-129) 10/26/17 06:27 Troponin T 0.081 ng/mL (0.00-0.029) H 10/25/17 13:50 NT-Pro-B Natriuret Pep 6215 pg/mL (0-900) H 10/27/17 06:00 Total Protein 6.9 g/dL (6.3-8.2) 10/26/17 06:27 Albumin 3.3 g/dL (3.9-5) L 10/26/17 06:27 Albumin/Globulin Ratio 0.9 % 10/26/17 06:27 Triglycerides 70 mg/dL (2-149) 10/25/17 13:50 Cholesterol 119 mg/dL (50-199) 10/25/17 13:50 LDL Cholesterol Direct 54 mg/dL (50-130) 10/25/17 13:50 HDL Cholesterol 51 mg/dL (40-59) 10/25/17 13:50 Cholesterol/HDL Ratio 2.33 % 10/25/17 13:50
[2017-10-27] MEDS: PEPCID IV SCH (12:53)
[2017-10-27] MEDS: LEVAQUIN 750MG/150ML 750 MG/150 ML BAG IV SCH (12:53)
[2017-10-27] MEDS: HEPARIN SUB-Q SCH (12:53)
[2017-10-27] MEDS: CARDIZEM PO SCH ×3 (13:30→23:46)
[2017-10-27] MEDS: LOVENOX SUB-Q SCH (13:30)
[2017-10-27] MEDS: PEPCID PO SCH ×2 (13:30→23:46)
[2017-10-27] MEDS ORDERED: CORDARONE 150 MG in D5W 97 ML IV ONE (15:15)
[2017-10-27] MEDS: CORDARONE 900 MG in D5W 482 ML IV SCH (16:19)
--- NOTE | 2017-10-27 18:33 | Consultation ---
History of Present Illness - Reason for Consult Consult date: 10/27/17 acute renal failure Requesting physician: MARILIN LAGUNA - History of Present Illness 77-year-old Earlene male presented with cough and shortness of breath of a few days duration with lower extremity swelling. Patient has a history of question chronic obstructive pulmonary disease. Chest x-ray showing a right middle lobe infiltrate, cardiomegaly and widened mediastinum. A CT chest with contrast is being contemplated and so renal consult is requested because of elevated BUN/ creatinine. On presentation, BUN/creatinine were 32/1.6 ng/dL. Sodium was 145 mmol per liter but it has increased to 149 mmol per liter. Patient's says the cough has been nonproductive. No hemoptysis or wheezing. No chest pain or palpitations. He does admit to lower extremity swelling He denies any voiding difficulties. He has increased liver function tests. He also complains of low back pain. Patient was in atrial fibrillation with rapid ventricular rate on presentation. Patient is a poor historian and history is obtained from the niece at the bedside. Past History Past Medical History: COPD Past Surgical History: No surgical history Social history: lives with family, other (retired from the [employer] in [facility]. Lives with his niece). denies: smoking, alcohol abuse, prescription drug abuse, IV drug use Family history: hypertension ( sisters have hypertension), other (one sister in her 90s of old age and 2 brothers in their 80s. Does not know the cause of of his parents) Medications and Allergies Allergies Allergy/AdvReac Type Severity Reaction Status Date / Time No Known Allergies Allergy Unverified 10/25/17 16:34 Home Medications Medication Instructions Recorded Confirmed Last Taken Type ALBUTEROL NEB's [Proventil] 2.5 mg IH TID PRN 10/25/17 10/25/17 Unknown History Levofloxacin [Levaquin] 250 mg PO QDAY 10/25/17 10/25/17 Unknown History Active Meds: Active Medications Acetaminophen (Tylenol) 650 mg PO Q4H PRN PRN Reason: Pain MILD(1-3)/Fever >100.5/TAPIA Albuterol (Proventil) 2.5 mg IH Q4HRT PRN PRN Reason: Shortness Of Breath Albuterol/Ipratropium (Duoneb *Not For Prn Use*) 1 ampul IH Q6HRT [facility] Last Admin: 10/27/17 14:59 Dose: 1 ampul Bisacodyl (Dulcolax) 10 mg [place] QDAY PRN PRN Reason: Constipation unrelieved by MOM Diltiazem HCl (Cardizem) 60 mg PO Q6HR [facility] Last Admin: 10/27/17 17:52 Dose: 60 mg Enoxaparin Sodium (Lovenox) 50 mg 1 mg/kg (50 mg) SUB-Q Q12H [facility] Last Admin: 10/27/17 13:30 Dose: 50 mg Famotidine (Pepcid) 10 mg PO BID [facility] Last Admin: 10/27/17 13:30 Dose: 10 mg Diltiazem HCl 100 mg/ Dextrose 100 mls @ 10 mls/hr IV DIRECT [facility] PRN Reason: 10 MG/HR Levofloxacin/Dextrose (Levaquin 750mg/150ml) 750 mg in 150 mls @ 100 mls/hr IV Q48HR [facility] PRN Reason: Protocol Amiodarone HCl 900 mg/ (Dextrose) 500 mls @ 33.33 mls/hr IV DIRECT [facility]; 1 MG /MIN PRN Reason: Protocol Last Admin: 10/27/17 16:19 Dose: 1 mg/min, 33.33 mls/hr Magnesium Hydroxide (Milk Of Magnesia) 30 ml PO Q4H PRN PRN Reason: Constipation Methylprednisolone Sodium Succinate (Solu-Medrol) 125 mg IV Q8HR [facility] Last Admin: 10/27/17 13:30 Dose: 125 mg Morphine Sulfate (Morphine) 2 mg IV Q4H PRN PRN Reason: Pain, Moderate (4-6) Ondansetron HCl (Zofran) 4 mg IV Q8H PRN PRN Reason: N/V unrelieved by Reglan Oxycodone/Acetaminophen (Percocet 5/325) 1 tab PO Q6H PRN PRN Reason: Pain, Moderate (4-6) Review of Systems All systems: negative (Constitutional: no fever or chills. No anorexia or weight loss. HEENT: No sore throat or sinus drainage no hearing or vision impairment . Cardiovascular: See history of present illness. No dizziness. Respiratory: See history of present illness. No hemoptysis or wheezing. Gastrointestinal: No nausea, vomiting, diarrhea, abdominal pain, hematemesis or melena. Genitourinary: No frequency urgency dysuria or hematuria. hematologic: No abnormal bleeding or bruising. Integumentary: no pruritus or rash. Neurological: No headache no focal weakness or numbness, no syncope or seizures. Musculoskeletal: Complains of back pain but no other joint pains no stiffness. Psychiatry: no anxiety or depression) Exam - Vital Signs Vital signs: Vital Signs Pulse Resp Pulse Ox 96 H 18 100 10/25/17 13:27 10/25/17 13:27 10/25/17 13:27 Results - Lab Results 10/27/17 06:00 10/27/17 06:00 Most recent lab results Calcium 8.7 mg/dL (8.4-10.2) 10/27/17 06:00 Assessment and Plan - Patient Problems (1) NEEL (acute kidney injury) Current Visit: Yes Status: Acute Plan to address problem: Possibly chronic kidney disease secondary to aging/arterial nephrosclerosis. Patient may have superimposed acute kidney injury secondary to sepsis/volume depletion. Will get urinalysis. Get kidney and bladder ultrasound. Follow-up electrolytes and renal function. Gentle volume repletion. (2) Abnormal chest x-ray Current Visit: Yes Status: Acute Plan to address problem: Discussed at length with the patient's family at the bedside. He does not want to get a contrast CT of the chest because we will not proceed with any kind of surgical intervention if an abnormalities found. Given the risk of worsening kidney function would avoid contrast exposure then. They are well aware of the risk if patient has undiagnosed dissecting aortic aneurysm which could be potentially life threatening. (3) Acute respiratory failure with hypoxia Current Visit: Yes Status: Acute Plan to address problem: Continue bronchodilators, steroids and supplemental oxygen per Pulmonary (4) COPD with acute exacerbation Current Visit: Yes Status: Acute Plan to address problem: Continue treatment (5) Right lower lobe pneumonia Current Visit: Yes Status: Acute Plan to address problem: Continue antibiotics appropriately adjusted for the degree of renal function (6) Transaminasemia Current Visit: Yes Status: Acute Plan to address problem: Check hepatitis serologies. Avoid hepatotoxic medications. Follow-up liver function tests
[2017-10-27] MEDS ORDERED: NACL 0.45% 1000 ML 1,000 ML IV SCH (19:00)
--- NOTE | 2017-10-27 20:36 | Ultrasound Report ---
FINAL REPORT EXAM: US RENAL BILAT HISTORY: Acute kidney injury TECHNIQUE: Real-time sonography was performed of the kidneys and bladder and images are submitted for interpretation. PRIORS: None. FINDINGS: There are 2 simple cysts in the upper pole of the right kidney measuring 1.2 and 1.6 cm respectively. The right kidney measures 9.1 x 3.3 x 4.6 cm. There is a 1.8 cm simple cyst in the upper pole of the left kidney and a 2.1 cm simple cyst in the left mid kidney. The left kidney measures 10.2 x 4.6 x 5.9 cm. Otherwise, the kidneys appear normal in size, shape and echogenicity. There is no hydronephrosis. There are no focal renal lesions. The bladder appears normal. IMPRESSION: Bilateral simple renal cysts, 2 in each kidney.
[2017-10-28] MEDS: LOVENOX SUB-Q SCH ×2 (02:01→13:42)
[2017-10-28] MEDS: DUONEB *Not for PRN Use IH SCH ×4 (03:44→21:22)
--- NOTE | 2017-10-28 05:08 | Consultation ---
PULMONARY CONSULTATION NOTE CONSULTING PHYSICIAN: ____. REASON FOR CONSULTATION: Respiratory failure. CHIEF COMPLAINT AND HISTORY OF PRESENT ILLNESS: The patient is a 77-year-old male, who really has no documented past medical history. The patient was noted to be short of breath, brought into the Emergency Room a couple of days ago. O2 sats were in the 80s. He has a history of some mild dementia, was unable to give much history. When I stopped by to see him, he was resting in bed. He was actually on a BiPAP machine. He seems to deny any pain, though his son was not around at the time to help with communication. He denied any nausea or vomiting. He has not had any of that since he has been in the hospital. He denied any chest pains. He denied fevers or chills. With regards to tobacco use, he states he did smoke in the past, but could not tell me how much he did. It really is as much of the history of presentation as I have. PAST MEDICAL HISTORY: Suggestive of congestive heart failure, maybe COPD as well as tobacco use in the past. PAST SURGICAL HISTORY: Unknown. MEDICATIONS: Medications he was on at the time I stopped by to see him, according to the medication administration record included the following: P.r.n. Tylenol, DuoNeb treatments nebulized q.6 hours, Pepcid 20 mg IV b.i.d., Levaquin 750 mg IV daily, Solu-Medrol 125 mg IV q.8 hours, morphine 2 mg IV q.4 hours p.r.n. and p.r.n. Zofran 4 mg IV q.8 hours p.r.n. nausea and vomiting as well as heparin 5000 units subcutaneously q.8 hours. ALLERGIES: No known drug allergies. DIET: Thin gentleman, almost cachectic, acute weight loss or gain history is unknown. FAMILY AND SOCIAL HISTORY: Apparently lived in the community with family. He does give a history of remote tobacco use. Denies current alcohol, tobacco, or illicit drug use or abuse. REVIEW OF SYSTEMS: Unobtainable at this point, mostly due to his medical and mental status. Since he has been here, no gross hematochezia or melena, no gross hematuria, no hematemesis, no hemoptysis, no witnessed seizures. He denies any loss of consciousness. PHYSICAL EXAMINATION: VITAL SIGNS: On examination at presentation in the Emergency Room, he had a low grade fever of 99.7 degrees Fahrenheit with a pulse of 79, respiratory rate of 15, blood pressure 136/80, oxygen sats were 97%, inspired oxygen concentration was not recorded. GENERAL: Elderly looking male, normocephalic, atraumatic, on the BiPAP machine, in moderate respiratory distress. HEAD, EYES, EARS, NOSE AND THROAT: He is anicteric, no conjunctival erythema. He has gross jugular venous distention to about the angle of the sternum. No thyromegaly. Grossly no palpable lymph nodes in the supraclavicular or submandibular lymph node chains. LUNGS: Auscultation of both lung tam, bibasilar rales bilaterally with slightly prolonged expiratory phase. No wheezing. HEART: Heart sounds 1 and 2 are heard. Irregular rate and rhythm at the time of my evaluation. No rubs. He had a soft systolic ejection murmur. ABDOMEN: Soft, full, bowel sounds positive, nontender, no palpable hepatosplenomegaly. EXTREMITIES: With about 1+ bipedal pitting edema, no significant digital clubbing or cyanosis. Dorsalis pedis pulses are palpable bilaterally. SKIN: Showed chronic stasis changes, stasis dermatitis to the shins, otherwise it was of normal turgor. No cellulitis, no rash. NEUROLOGIC: The pupils were equal, round, about 3-4 mm, reactive to light. Extraocular muscle movements were intact. He moved all 4 extremities spontaneously. LABORATORY DATA: From my review are as follows: Admission white cell count 5700 with a hemoglobin of 12.2, hematocrit of 37.9, and platelet count of 96. No significant band forms were reported. Arterial blood gas showed a pH of 7.36, pCO2 of 55, and pO2 of 77 that was on 30% FiO2. Serum sodium 145, potassium 5.0, chloride 102, bicarbonate 26, BUN 32, creatinine 1.5 and a glucose of 117. Hemoglobin A1c was 5.2. AST was up at 265 and ALT 272. BNP was elevated at 16,708. LDL cholesterol was 54. Blood cultures no growth to date. RADIOLOGY REPORTS: Chest x-ray shows deviation of the trachea to the right, perhaps some uncoiling of the aorta, right lower lobe infiltrate/atelectatic area. Cardiac contour appears to be deviated to the right. No gross pneumothorax, no gross bony fracture and no overt pulmonary edema. ASSESSMENT AND PLAN: 1. Acute, most likely on chronic hypoxemic hypercapnic respiratory failure. 2. Likely acute chronic obstructive pulmonary disease exacerbation. 3. Cardiomyopathy. 4. Possible congestive heart failure. 5. Abnormal chest x-ray with an abnormal mediastinum. 6. History of tobacco use. 7. Adult failure to thrive. PLAN: 1. We will continue on supplemental oxygen. 2. We will continue bilevel positive air pressure ventilation therapy. We will make it scheduled at bedtime with p.r.n. use during the day. We will continue bronchodilators as ordered. A CT scan of the chest will be ordered. He will benefit from a CT angio of the chest. For this reason, a Nephrology consultation will be placed to try and prepare him for the administration of contrast in light of his elevated serum creatinine, but he certainly will need a CT angio to better delineate the mediastinal structures as suggested on the chest x-ray, he may actually have significant aortic aneurysm that may need surgical intervention. Oxygen will be titrated to keep sats greater than or equal to about 90%. Aspiration precautions will be maintained. I will hold on the institution of diuretics at this point. He is in atrial fibrillation and I believe Cardiology has been consulted. A 2D echocardiogram will be of benefit. I will follow along with that. He is appropriately on GI and DVT prophylaxis. Flu and pneumonia vaccination will be per protocol. Thank you very much for the consult. We will follow along and make further recommendations as picture progresses/becomes clearer. JOB# [id number] HEAVEN/SHARMAINE
[2017-10-28] MEDS: CARDIZEM PO SCH ×3 (05:45→18:37)
[2017-10-28 07:32] LABS: Hematocrit 38.1 % (35.5-45.6); Mean Corpuscular HGB Conc 31 % (32-34); Mean Corpuscular Hemoglobin 30 pg (28-32); Mean Corpuscular Volume 94 fl (84-94); Platelet Count 116 K/mm3 (140-440); Red Blood Count 4.04 M/mm3 (3.65-5.03); Red Cell Distribution Width 13.6 % (13.2-15.2)
[2017-10-28 08:02] LABS: Calcium 8.8 mg/dL (8.4-10.2)
[2017-10-28 08:06] LABS: Albumin 3.2 g/dL (3.9-5); Bilirubin,Direct 0.2 mg/dL (0-0.2)
[2017-10-28 10:00] LABS: Anisocytosis Few; Band Neutrophils # (Manual) 0.2 K/mm3; Basophils % (Manual) 0 % (0.0-1.8); Eosinophils % (Manual) 0 % (0.0-4.3); Monocytes % (Manual) 2 % (0.0-7.3); Total Cells Counted 100
[2017-10-28] MEDS ORDERED: NACL 0.9% 1000 ML ONE (10:00)
[2017-10-28] MEDS ORDERED: LEVAQUIN 750MG/150ML 750 MG/150 ML BAG IV SCH (10:00)
[2017-10-28] MEDS: PEPCID PO SCH ×2 (10:41→22:07)
[2017-10-28] MEDS: CORDARONE 900 MG in D5W 482 ML IV SCH (10:49)
--- NOTE | 2017-10-28 11:41 | Progress Note ---
Assessment and Plan Atrial fibrillation -persists newly diagnosed on oral cardizem Ventricular tachycardia, paroxysmal on IV amiodarone Pneumonia Abnormal Cardiac location on chest Xray Subjective Date of service: 10/28/17 Interval history: Patient is alert with some confusion. No distress noted. Objective Vital Signs Temp Pulse Pulse Resp Resp Resp BP 10/28/17 08:22 63 109/69 10/28/17 05:45 90 118/74 10/28/17 04:40 98.6 F 90 22 118/74 10/27/17 23:55 97.9 F 20 118/66 10/27/17 23:46 110 H 126/82 10/27/17 20:44 10/27/17 20:30 20 10/27/17 20:20 22 10/27/17 20:00 77 20 10/27/17 19:25 98.1 F 83 20 118/74 10/27/17 19:20 107 H 10/27/17 15:50 85 18 10/27/17 15:28 84 18 Pulse Ox 10/28/17 08:22 95 10/28/17 05:45 10/28/17 04:40 95 10/27/17 23:55 10/27/17 23:46 10/27/17 20:44 97 10/27/17 20:30 98 10/27/17 20:20 10/27/17 20:00 10/27/17 19:25 91 10/27/17 19:20 10/27/17 15:50 10/27/17 15:28 - Physical Examination General: No Apparent Distress HEENT: Positive: PERRL Cardiac: Positive: irregularly irregular Abdomen: Positive: Soft, Active Bowel Sounds Extremities: Absent: edema - Labs and Meds Cardiac Enzymes 10/28/17 Range/Units 06:45 AST 51 H (5-40) units/L CBC 10/28/17 Range/Units 06:45 WBC 4.9 (4.5-11.0) K/mm3 RBC 4.04 (3.65-5.03) M/mm3 Hgb 12.0 (11.8-15.2) gm/dl Hct 38.1 (35.5-45.6) % Plt Count 116 L (140-440) K/mm3 Comprehensive Metabolic Panel 10/28/17 10/28/17 Range/Units 06:45 06:45 Sodium 141 D (137-145) mmol/L Potassium 4.7 (3.6-5.0) mmol/L Chloride 98.6 (98-107) mmol/L Carbon Dioxide 28 (22-30) mmol/L BUN 41 H (9-20) mg/dL Creatinine 1.4 (0.8-1.5) mg/dL Glucose 155 H (75-100) mg/dL Calcium 8.8 (8.4-10.2) mg/dL Direct Bilirubin 0.2 (0-0.2) mg/dL Indirect Bilirubin 0.4 mg/dL AST 51 H (5-40) units/L ALT 142 H (7-56) units/L Alkaline Phosphatase 81 (35-129) units/L Total Protein 6.6 (6.3-8.2) g/dL Albumin 3.2 L (3.9-5) g/dL - Imaging and Cardiology EKG: report reviewed
--- NOTE | 2017-10-28 11:50 | Progress Note ---
Assessment and Plan Assessment and plan: Acute hypoxic hypercapnic respiratory failure. Etiology secondary to pneumonia , COPD. Continue BiPAP as clinically indicated. Pulmonary consultation. Right lower lobe pneumonia. Continue IV antibiotics with Levaquin. Follow-up chest x-ray. New-onset atrial fibrillation. Continue IV amiodarone and oral Cardizem. Cardiology following. Follow-up echocardiogram. Nurse reported. Patient had 1 minute long episode of sustained V. tach yesterday. Patient will be transferred to ICU for closer monitoring and IV amiodarone drip. NSVT. As above COPD exacerbation. Continue bronchodilators and O2/BiPAP for supportive care. Acute renal failure. Etiology likely secondary to acute kidney injury versus vasomotor nephropathy. Follow BMP. Toxic metabolic encephalopathy. Continue to treat underlying causes. Elevated BNP. Check echocardiogram. ? Thoracic aortic aneurysm. Radiology recommends CT with IV contrast for further evaluation. Dr. Rowe discussed at length with the patient's family and they do not want to get a contrast CT of the chest because we will not proceed with any kind of surgical intervention if an abnormalities found. Also , given the risk of worsening kidney function with contrast, we will avoid contrast exposure. They are well aware of the risk if patient has undiagnosed dissecting aortic aneurysm which could be potentially life threatening. DVT prophylaxis. Continue Lovenox. History Interval history: Patient is confused requiring restraints. Hospitalist Physical - Constitutional Vitals: Temp Pulse Resp BP Pulse Ox 98.6 F 63 22 109/69 95 10/28/17 04:40 10/28/17 08:22 10/28/17 04:40 10/28/17 08:22 10/28/17 08:22 General appearance: Present: no acute distress - EENT Eyes: Present: PERRL, EOM intact ENT: hearing intact, clear oral mucosa, dentition normal - Neck Neck: Present: supple, normal ROM - Respiratory Respiratory effort: normal Respiratory: bilateral: CTA - Cardiovascular Rhythm: regular Heart Sounds: Present: S1 & S2. Absent: gallop, rub - Extremities Extremities: no ischemia, No edema, Full ROM - Abdominal General gastrointestinal: soft, non-tender, non-distended, normal bowel sounds - Integumentary Integumentary: Present: clear, warm, dry - Neurologic Neurologic: CNII-XII intact, moves all extremities Results - Labs CBC & Chem 7: 10/28/17 06:45 10/28/17 06:45 Labs: Laboratory Last Values WBC 4.9 K/mm3 (4.5-11.0) 10/28/17 06:45 RBC 4.04 M/mm3 (3.65-5.03) 10/28/17 06:45 Hgb 12.0 gm/dl (11.8-15.2) 10/28/17 06:45 Hct 38.1 % (35.5-45.6) 10/28/17 06:45 MCV 94 fl (84-94) 10/28/17 06:45 MCH 30 pg (28-32) 10/28/17 06:45 MCHC 31 % (32-34) L 10/28/17 06:45 RDW 13.6 % (13.2-15.2) 10/28/17 06:45 Plt Count 116 K/mm3 (140-440) L 10/28/17 06:45 Lymph % (Auto) 8.6 % (13.4-35.0) L 10/27/17 06:00 [place] % (Auto) 5.5 % (0.0-7.3) 10/27/17 06:00 Eos % (Auto) 0.0 % (0.0-4.3) 10/27/17 06:00 Baso % (Auto) 0.0 % (0.0-1.8) 10/27/17 06:00 Lymph # 0.4 K/mm3 (1.2-5.4) L 10/27/17 06:00 [place] # 0.2 K/mm3 (0.0-0.8) 10/27/17 06:00 Eos # 0.0 K/mm3 (0.0-0.4) 10/27/17 06:00 Baso # 0.0 K/mm3 (0.0-0.1) 10/27/17 06:00 Add Manual Diff Complete 10/28/17 06:45 Total Counted 100 10/28/17 06:45 Seg Neutrophils % Water Safety Teacher 10/28/17 06:45 Seg Neuts % (Manual) 88 % (40.0-70.0) H 10/28/17 06:45 Band Neutrophils % 4.0 % 10/28/17 06:45 Lymphocytes % (Manual) 6.0 % (13.4-35.0) L 10/28/17 06:45 Reactive Lymphs % (Man) 0 % 10/28/17 06:45 Monocytes % (Manual) 2 % (0.0-7.3) 10/28/17 06:45 Eosinophils % (Manual) 0 % (0.0-4.3) 10/28/17 06:45 Basophils % (Manual) 0 % (0.0-1.8) 10/28/17 06:45 Metamyelocytes % 0 % 10/28/17 06:45 Myelocytes % 0 % 10/28/17 06:45 Promyelocytes % 0 % 10/28/17 06:45 Blast Cells % 0 % 10/28/17 06:45 Nucleated RBC % Not Reportable 10/28/17 06:45 Seg Neutrophils # 3.6 K/mm3 (1.8-7.7) 10/27/17 06:00 Seg Neutrophils # Man 4.3 K/mm3 (1.8-7.7) 10/28/17 06:45 Band Neutrophils # 0.2 K/mm3 10/28/17 06:45 Lymphocytes # (Manual) 0.3 K/mm3 (1.2-5.4) L 10/28/17 06:45 Abs React Lymphs (Man) 0.0 K/mm3 10/28/17 06:45 Monocytes # (Manual) 0.0 K/mm3 (0.0-0.8) 10/28/17 06:45 Eosinophils # (Manual) 0.0 K/mm3 (0.0-0.4) 10/28/17 06:45 Basophils # (Manual) 0.0 K/mm3 (0.0-0.1) 10/28/17 06:45 Metamyelocytes # 0.0 K/mm3 10/28/17 06:45 Myelocytes # 0.0 K/mm3 10/28/17 06:45 Promyelocytes # 0.0 K/mm3 10/28/17 06:45 Blast Cells # 0.0 K/mm3 10/28/17 06:45 WBC Morphology Not Reportable 10/28/17 06:45 Hypersegmented Neuts Not Reportable 10/28/17 06:45 Hyposegmented Neuts Not Reportable 10/28/17 06:45 Hypogranular Neuts Not Reportable 10/28/17 06:45 Smudge Cells Not Reportable 10/28/17 06:45 Toxic Granulation Not Reportable 10/28/17 06:45 Toxic Vacuolation Not Reportable 10/28/17 06:45 Dohle Bodies Not Reportable 10/28/17 06:45 Pelger-Huet Anomaly Not Reportable 10/28/17 06:45 Santy Rods Not Reportable 10/28/17 06:45 Platelet Estimate Not Reportable 10/28/17 06:45 Clumped Platelets Not Reportable 10/28/17 06:45 Plt Clumps, EDTA Not Reportable 10/28/17 06:45 Large Platelets Not Reportable 10/28/17 06:45 Giant Platelets Not Reportable 10/28/17 06:45 Platelet Satelliting Not Reportable 10/28/17 06:45 Plt Morphology Comment Not Reportable 10/28/17 06:45 RBC Morphology Not Reportable 10/28/17 06:45 Dimorphic RBCs Not Reportable 10/28/17 06:45 Polychromasia Not Reportable 10/28/17 06:45 Hypochromasia Not Reportable 10/28/17 06:45 Poikilocytosis Not Reportable 10/28/17 06:45 Anisocytosis Few 10/28/17 06:45 Microcytosis Not Reportable 10/28/17 06:45 Macrocytosis Not Reportable 10/28/17 06:45 Spherocytes Not Reportable 10/28/17 06:45 Pappenheimer Bodies Not Reportable 10/28/17 06:45 Sickle Cells Not Reportable 10/28/17 06:45 Target Cells Not Reportable 10/28/17 06:45 Tear Drop Cells Not Reportable 10/28/17 06:45 Ovalocytes Not Reportable 10/28/17 06:45 Helmet Cells Not Reportable 10/28/17 06:45 [place] Bodies Not Reportable 10/28/17 06:45 [place] Rings Not Reportable 10/28/17 06:45 [place] Cells Not Reportable 10/28/17 06:45 Bite Cells Not Reportable 10/28/17 06:45 Crenated Cell Not Reportable 10/28/17 06:45 Elliptocytes Not Reportable 10/28/17 06:45 Acanthocytes (Spur) Not Reportable 10/28/17 06:45 Rouleaux Not Reportable 10/28/17 06:45 Hemoglobin C Crystals Not Reportable 10/28/17 06:45 Schistocytes Not Reportable 10/28/17 06:45 Malaria parasites Not Reportable 10/28/17 06:45 Ángel Bodies Not Reportable 10/28/17 06:45 Hem Pathologist Commnt No 10/28/17 06:45 POC ABG pH 7.355 (7.35-7.45) 10/25/17 16:38 POC ABG pCO2 54.6 (35-45) H 10/25/17 16:38 POC ABG pO2 77 (80-105) L 10/25/17 16:38 POC ABG HCO3 30.5 10/25/17 16:38 POC ABG Total CO2 32 10/25/17 16:38 POC ABG O2 Sat 94 10/25/17 16:38 POC ABG Base Excess 5 10/25/17 16:38 FiO2 30 % 10/25/17 16:38 Sodium 141 mmol/L (137-145) D 10/28/17 06:45 Potassium 4.7 mmol/L (3.6-5.0) 10/28/17 06:45 Chloride 98.6 mmol/L (98-107) 10/28/17 06:45 Carbon Dioxide 28 mmol/L (22-30) 10/28/17 06:45 Anion Gap 19 mmol/L 10/28/17 06:45 BUN 41 mg/dL (9-20) H 10/28/17 06:45 Creatinine 1.4 mg/dL (0.8-1.5) 10/28/17 06:45 Estimated GFR 59 ml/min 10/28/17 06:45 BUN/Creatinine Ratio 29 % 10/28/17 06:45 Glucose 155 mg/dL (75-100) H 10/28/17 06:45 Hemoglobin A1c 5.2 % (4-6) 10/25/17 13:50 Calcium 8.8 mg/dL (8.4-10.2) 10/28/17 06:45 Total Bilirubin 0.60 mg/dL (0.1-1.2) 10/28/17 06:45 Direct Bilirubin 0.2 mg/dL (0-0.2) 10/28/17 06:45 Indirect Bilirubin 0.4 mg/dL 10/28/17 06:45 AST 51 units/L (5-40) H 10/28/17 06:45 ALT 142 units/L (7-56) H 10/28/17 06:45 Alkaline Phosphatase 81 units/L (35-129) 10/28/17 06:45 Troponin T 0.081 ng/mL (0.00-0.029) H 10/25/17 13:50 NT-Pro-B Natriuret Pep 6215 pg/mL (0-900) H 10/27/17 06:00 Total Protein 6.6 g/dL (6.3-8.2) 10/28/17 06:45 Albumin 3.2 g/dL (3.9-5) L 10/28/17 06:45 Albumin/Globulin Ratio 0.9 % 10/28/17 06:45 Triglycerides 70 mg/dL (2-149) 10/25/17 13:50 Cholesterol 119 mg/dL (50-199) 10/25/17 13:50 LDL Cholesterol Direct 54 mg/dL (50-130) 10/25/17 13:50 HDL Cholesterol 51 mg/dL (40-59) 10/25/17 13:50 Cholesterol/HDL Ratio 2.33 % 10/25/17 13:50 Prostate Specific Ag 2.14 ng/mL (0.00-4.00) 10/28/17 06:45
[2017-10-28 12:55] LABS: Hepatitis C Virus Antibody Non-Reactive (NonReactive)
--- NOTE | 2017-10-28 14:47 | Progress Note ---
Subjective Date of service: 10/28/17 Principal diagnosis: Acute Hypoxemic Respiratory Failure; Abnormal CXR Objective Vital Signs - 12hr 10/28/17 10/28/17 10/28/17 04:40 05:45 08:22 Temperature 98.6 F Pulse Rate 90 90 63 Pulse Rate [ Right Lower Lobe] Respiratory 22 Rate Respiratory Rate [Right Lower Lobe] Blood Pressure 118/74 118/74 109/69 O2 Sat by Pulse 95 95 Oximetry 10/28/17 10/28/17 13:40 13:41 Temperature Pulse Rate 76 Pulse Rate [ 77 Right Lower Lobe] Respiratory Rate Respiratory 16 Rate [Right Lower Lobe] Blood Pressure 135/79 O2 Sat by Pulse Oximetry CBC and BMP: 10/28/17 06:45 10/28/17 06:45 ABG, PT/INR, D-dimer: ABG POC ABG pH 7.355 (7.35-7.45) 10/25/17 16:38 POC ABG pCO2 54.6 (35-45) H 10/25/17 16:38 POC ABG pO2 77 (80-105) L 10/25/17 16:38 POC ABG HCO3 30.5 10/25/17 16:38 POC ABG Total CO2 32 10/25/17 16:38 POC ABG O2 Sat 94 10/25/17 16:38 Abnormal lab findings: Abnormal Labs 10/25/17 10/25/17 10/25/17 13:50 13:50 13:50 WBC Hgb MCV 96 H MCHC RDW Plt Count 96 L Lymph % (Auto) Lymph # Seg Neutrophils % Seg Neuts % (Manual) 75.0 H Lymphocytes % (Manual) 10.0 L Monocytes % (Manual) 14.0 H Lymphocytes # (Manual) 0.6 L POC ABG pCO2 POC ABG pO2 Sodium Carbon Dioxide 31 H BUN 31 H Creatinine 1.7 H Glucose 121 H AST ALT Troponin T 0.081 H NT-Pro-B Natriuret Pep 12344 H Albumin 10/25/17 10/25/17 10/26/17 13:50 16:38 06:27 WBC Hgb MCV 96 H MCHC RDW Plt Count 91 L Lymph % (Auto) Lymph # 0.7 L Seg Neutrophils % 80.6 H Seg Neuts % (Manual) Lymphocytes % (Manual) Monocytes % (Manual) Lymphocytes # (Manual) POC ABG pCO2 54.6 H POC ABG pO2 77 L Sodium Carbon Dioxide BUN 32 H Creatinine 1.6 H Glucose 117 H AST 265 H ALT 272 H Troponin T NT-Pro-B Natriuret Pep Albumin 3.4 L 10/26/17 10/27/17 10/27/17 06:27 06:00 06:00 WBC 4.1 L Hgb 11.6 L MCV 95 H MCHC RDW 13.1 L Plt Count 100 L Lymph % (Auto) 8.6 L Lymph # 0.4 L Seg Neutrophils % 85.9 H Seg Neuts % (Manual) Lymphocytes % (Manual) Monocytes % (Manual) Lymphocytes # (Manual) POC ABG pCO2 POC ABG pO2 Sodium 149 H Carbon Dioxide 31 H BUN 30 H 42 H Creatinine Glucose 129 H 149 H AST 191 H ALT 255 H Troponin T NT-Pro-B Natriuret Pep 6215 H Albumin 3.3 L 10/28/17 10/28/17 10/28/17 06:45 06:45 06:45 WBC Hgb MCV MCHC 31 L RDW Plt Count 116 L Lymph % (Auto) Lymph # Seg Neutrophils % Seg Neuts % (Manual) 88 H Lymphocytes % (Manual) 6.0 L Monocytes % (Manual) Lymphocytes # (Manual) 0.3 L POC ABG pCO2 POC ABG pO2 Sodium Carbon Dioxide BUN 41 H Creatinine Glucose 155 H AST 51 H ALT 142 H Troponin T NT-Pro-B Natriuret Pep Albumin 3.2 L
--- NOTE | 2017-10-28 15:26 | Cat Scan Report ---
CT CHEST WITHOUT CONTRAST: HISTORY: Abnormal chest x-ray, widened mediastinum, bilateral infiltrates. COMPARISON: AP chest dated 10/25/17. TECHNIQUE: Helical CT in 1.25mm intervals without IV contrast. Sagittal and coronal reformatted images. The patient refused IV contrast. FINDINGS: Thyroid gland: Unremarkable. Tracheobronchial tree: Normal. Esophagus: Normal. Heart: There is moderate cardiomegaly with four-chamber enlargement. Pericardium: Normal. Mediastinum: The aorta is mildly ectatic. Lung P[place]: The lungs are well-aerated. There is no evidence for infiltrate, mass or interstitial lung disease. The opacity seen along the right heart border is actually secondary to the enlarged heart and overlying breast soft tissues. No lung infiltrates are identified. Pleural Spaces: Small layering pleural effusions measure up to 1 cm in thickness. No pneumothorax. Musculoskeletal: Normal. IMPRESSION: Mild CHF. No evidence for infiltrates. Widened mediastinum on x-ray is secondary to cardiomegaly and ectatic aorta.
--- NOTE | 2017-10-28 16:44 | Progress Note ---
Assessment and Plan - Patient Problems (1) NEEL (acute kidney injury) Current Visit: Yes Status: Acute Plan to address problem: Possibly chronic kidney disease secondary to aging/arterial nephrosclerosis. Patient may have superimposed acute kidney injury secondary to sepsis/volume depletion. Kidney function stable and sodium improving. Follow-up electrolytes and renal function. Gentle volume repletion. (2) Abnormal chest x-ray Current Visit: Yes Status: Acute Plan to address problem: D CT chest without contrast shows widened mediastinum was just from cardiomegaly. Patient also has small pleural effusions. (3) Acute respiratory failure with hypoxia Current Visit: Yes Status: Acute Plan to address problem: Continue bronchodilators, steroids and supplemental oxygen per Pulmonary (4) COPD with acute exacerbation Current Visit: Yes Status: Acute Plan to address problem: Continue treatment (5) Right lower lobe pneumonia Current Visit: Yes Status: Acute Plan to address problem: Continue antibiotics appropriately adjusted for the degree of renal function (6) Transaminasemia Current Visit: Yes Status: Acute Plan to address problem: Hepatitis serologies negative. Liver function tests improving. Avoid hepatotoxic medications. Follow-up liver function tests (7) Cyst of kidney, acquired Current Visit: Yes Status: Acute Plan to address problem: Kidney cyst as simple. Simple cyst occur in more than 40% of people older than 50 years of age. They are of no significance and no further workup is needed Subjective Date of service: 10/28/17 Principal diagnosis: Acute Hypoxemic Respiratory Failure; Abnormal CXR Interval history: Patient seen lying in bed. "Not bad". No family at bedside Objective - Exam Narrative Exam: Elderly -[place] male lying in bed in no acute distress HEENT: NCAT, pink oral mucous membrane Neck: Supple, no venous distention CVS: S1S2 irregular, no murmur, rub or gallop Chest: Clear to auscultation Abdomen: Protuberant, soft, nontender, no organomegaly, bowel sounds are present Extremities: No edema Neuro: Awake, alert no focal deficits - Vital Signs Vital signs: Vital Signs - 12hr 10/28/17 10/28/17 10/28/17 05:45 08:22 10:00 Temperature Pulse Rate 90 63 64 Pulse Rate [ Right Lower Lobe] Respiratory Rate Respiratory Rate [Right Lower Lobe] Blood Pressure 118/74 109/69 O2 Sat by Pulse 95 95 Oximetry 10/28/17 10/28/1718 12:55 13:40 13:41 Temperature 97.6 F Pulse Rate 74 76 Pulse Rate [ 77 Right Lower Lobe] Respiratory 24 Rate Respiratory 16 Rate [Right Lower Lobe] Blood Pressure 135/79 135/79 O2 Sat by Pulse 92 Oximetry - Lab 10/28/17 06:45 10/28/17 06:45 Most recent lab results Calcium 8.8 mg/dL (8.4-10.2) 10/28/17 06:45
[2017-10-28] MEDS: CORDARONE PO SCH ×2 (18:53→22:06)
[2017-10-28] MEDS ORDERED: APRESOLINE IV PRN (21:00)
[2017-10-28] MEDS ORDERED: CORDARONE 900 MG in D5W 482 ML IV SCH (21:28)
[2017-10-29] MEDS ORDERED: ADRENALIN ONE ×2 (00:50→01:30)
[2017-10-29] MEDS ORDERED: ATROPINE 0.1% (CARDIAC) ONE ×2 (00:50→01:30)
[2017-10-29] MEDS: CARDIZEM PO SCH (00:55)
[2017-10-29] MEDS: LOVENOX SUB-Q SCH (00:55)
--- NOTE | 2017-10-29 01:29 | Event Note ---
Date: 10/29/17 CODE BLUE called Patient vomited in his BiPAP per report of nurse, he was found unresponsive Initial rhythm PEA, ACLS protocol was initiated, please refer to code sheet for details Patient was intubated by ER physician There was no ROSC Time of 0110 I have notify the daughter. She has a few questions that I am unable to answer Addendum I have notified Dr Daniel to call daughter at [phone] to answer her questions
[2017-10-29] MEDS ORDERED: CALCIUM CHLORIDE IV ONE (01:30)
--- NOTE | 2017-10-29 01:44 | Emergency Department Report ---
Blank Doc - Documentation Documentation: I respond to a CODE BLUE , when I arrived ACLS protocol in progress CPR. I intubated the patient after suctioning, tube confirmed with direct visualization and good breath sounds both sides and capnometry. Patient pronounced at 01:10. Please refer to code sheet for further information. Critical care time is spent 20 minutes
[2017-10-29] MEDS: DUONEB *Not for PRN Use IH SCH ×2 (02:07→08:20)
[2017-10-29 03:34] VITALS: BP 147/95
--- NOTE | 2017-10-29 07:56 | Death Summary ---
Summary - Providers Date of service: 10/29/17 Consults: 10/25/17 16:44 Consult to Physician [CONS] Routine Consulting Provider: MARIFER HARDY Reason For Exam: Resp failure/pneumonia Place consult to:: Dr. Hardy Notified:: Marce RN Phone number called:: Was contact made?: Yes If yes, spoke with:: Yes Time called:: 09:06 Comment:: message containing consult info left via automated answering service 10/25/17 16:56 Consult to Physician [CONS] Routine Consulting Provider: MARIFER HARDY Reason For Exam: Resp failure Place consult to:: Dr. Hardy Notified:: Marce CALVO Phone number called:: Was contact made?: Yes If yes, spoke with:: message containing consult info left via automated answering service Time called:: 09:06 10/26/17 13:53 Consult to Cardiology [CONS] Routine Consulting Provider: ISABELLA HOLLY Reason For Exam: new afib 10/27/17 10:38 Consult to Physician [CONS] Routine Consulting Provider: LEANDRA ROWE Reason For Exam: NEEL need for IV contrast Place consult to:: Dr. Rowe Notified:: Marce CALVO Phone number called:: Was contact made?: Yes If yes, spoke with:: Brittaney-answering service Time called:: 12:34 Attending: MENG BARRAZA - summary Date of admission: 10/25/17 16:44 Date of : 10/29/17 Disposition: This is a 77-year-old male who presented to the emergency department with probable significant past medical history of COPD with progressively worsening dyspnea. Family was very unsure of the patient's past medical history but believes he may have COPD. It is unknown whether the patient has CHF as well. Patient did not have a primary care physician nor regular health care follow- up. The patient was admitted with a diagnosis of acute hypoxic hypercapnic respiratory failure secondary to right lower lobe pneumonia, COPD and likely CHF exacerbation. The patient received breathing treatments, steroids and IV antibiotics. The patient was also noted to have what appeared to be acute kidney injury on possibly chronic kidney disease secondary to aging/arterial nephrosclerosis. Patient's echocardiogram shows moderate prolapse of the mitral valve and associated with at least moderate mitral regurgitation and a significantly dilated left atrium. In addition, there is evidence of cor pulmonale with dilated right heart chambers, moderate tricuspid regurgitation and severe pulmonary hypertension with a pulmonary artery systolic pressure of 66. Left ventricular chamber size and systolic function and normal, ejection fraction 60%. The patient was seen by cardiology, pulmonary and nephrology consultation. The patient was also noted to have an abnormal chest x-ray with wide mediastinum suggestive of thoracic aneurysm. The structural steel erection supervisor, discussed at length with the patient's family at the bedside regarding the potential diagnosis. However, He did not want to get a contrast CT of the chest because we will not proceed with any kind of surgical intervention if any abnormalities were found. Given the risk of worsening kidney function, contrast was avoided. They were well aware of the risk if patient had undiagnosed dissecting aortic aneurysm which could be potentially life threatening. Other, patient's on hospital stay included a sustained ventricular tachycardia of approximately 1 minute. The patient was treated with IV amiodarone and return to his baseline rhythm of atrial fibrillation, which was also a new diagnosis on this hospitalization. An attempt to transfer the patient to the ICU was initiated. However, as reported me by the ICU charge nurse, there was no bed availability. Patient still continue to receive the appropriate treatment on telemetry. With regards to the abnormal echocardiogram and moderate prolapse of the mitral valve, cardiology recommended conservative management of mitral valve prolapse in the setting of his advanced age, frailty and multiple comorbidities. Unfortunately, patient continued to decline with his respiratory status and required BiPAP. On 10/29/17, a CODE BLUE was called and she was noted to have vomited and his BiPAP per report of nursing. The patient was found unresponsive. Initial rhythm PEA, ACLS protocol was initiated, please refer to code sheet for details. Patient was intubated by ER physician. There was no ROSC and patient was pronounced at 0110. I have discussed the case with the daughter who had questions regarding the ICU transfer. I answered the questions to the best of my ability and referred her to our risk management for further clarification. Dedicated summary time 42 minutes.
[2017-10-29] MEDS ORDERED: AMIDATE IV ONE (14:34)
[2017-10-29] MEDS ORDERED: ZEMURON IV ONE (14:34)
[2017-10-29] MEDS ORDERED: QUELICIN ONE (14:34)
[2017-10-30] MEDS ORDERED: LEVAQUIN PO SCH (10:00)
== END 2017-10-29 09:00 | DRG 175 ==
LOC: ED 13:27 → 4A 16:44
PROVIDERS: ADMIT Internal Medicine; ATTEND Hospitalist
PROC: 4A033R1 Measurement of Arterial Saturation, Peripheral, Percutaneous Approach (ICD-10-PCS; principal; 2017-10-25)
PROC: 5A09457 Assistance with Respiratory Ventilation, 24-96 Consecutive Hours, Continuous Positive Airway Pressure (ICD-10-PCS; 2017-10-25)
DX: I26.09 Other pulmonary embolism with acute cor pulmonale (principal); J96.01 Acute respiratory failure with hypoxia; J18.1 Lobar pneumonia, unspecified organism; J96.02 Acute respiratory failure with hypercapnia; G92 Toxic encephalopathy; J44.0 Chronic obstructive pulmonary disease with (acute) lower respiratory infection; J44.1 Chronic obstructive pulmonary disease with (acute) exacerbation; N17.9 Acute kidney failure, unspecified; I47.2 Ventricular tachycardia; F03.90 Unspecified dementia, unspecified severity, without behavioral disturbance, psychotic disturbance, mood disturbance, and anxiety; I48.91 Unspecified atrial fibrillation; Z82.49 Family history of ischemic heart disease and other diseases of the circulatory system; N28.1 Cyst of kidney, acquired; I50.9 Heart failure, unspecified; N18.9 Chronic kidney disease, unspecified
CPT/HCPCS: 36415; 71045; 71250; 76770; 80048; 80053; 80061; 80074; 82803; 82962; 83036; 83880; 84153; 84484; 85007; 85025; 86706; 86803; 87040; 92950; 93005; 93010; 93306; 94640; 94660; 94760; J0171; J0282; J0330; J0461; J1644; J1650; J1940; J1956; J2930; J7030; J7060